=== PATIENT | female | born 1995 | race Hispanic/Latino ===

== ENCOUNTER 2017-06-21 09:53 | Emergency (ER) | payer SELFPAY ==
[2017-06-21 09:56] VITALS: BP 122/67; PULSE 77; RESP 18; TEMP 98.2; O2SAT 99
--- NOTE | 2017-06-21 10:28 | ED PDOC ---
HPI: General Adult Time Seen by Provider: 06/21/17 10:03 Chief Complaint (Nursing): Eye Problem History Per: Patient Additional Complaint(s): Pt. states for the past 2 weeks she's had R eye redness which has been improving slightly but then this morning she woke up with L eye redness and discharge prompting ED visit. She has been using Visine eye drops without relief. Denies pain, visual changes, trauma, contact lens use. Past Medical History Reviewed: Historical Data, Nursing Documentation, Vital Signs Vital Signs: Last Vital Signs Temp 98.2 F 06/21/17 09:56 Pulse 77 06/21/17 09:56 Resp 18 06/21/17 09:56 BP 122/67 06/21/17 09:56 Pulse Ox 99 06/21/17 09:56 - Family History Family History: States: No Known Family Hx - Home Medications Home Medications: Ambulatory Orders Medication Instructions Recorded Erythromycin 0.5% [Erythromycin] 1 applic BOTHEYES Q6 #1 tube 06/21/17 - Allergies Allergies/Adverse Reactions: Allergies Allergy/AdvReac Type Severity Reaction Status Date / Time FRUITS Allergy RASH Uncoded 06/21/17 10:05 NUTS Allergy RASH Uncoded 06/21/17 10:05 Review of Systems ROS Statement: Except As Marked, All Systems Reviewed And Found Negative Eyes: Positive for: Conjunctivae Inflammation, Redness Physical Exam - Physical Exam Appears: Positive for: Well, Non-toxic, No Acute Distress Skin: Positive for: Normal Color, Warm. Negative for: Rash Eye Exam: Positive for: EOMI (without pain), PERRL, Conjunctival injection (b/l (L>R)), Other (yellow discharge noted from L eye; minimal localized erythema noted to b/l upper eyelids without swelling or vesicles or pustules). Negative for: Nystagmus, Periorbital swelling, Periorbital tenderness - ECG O2 Sat by Pulse Oximetry: 99 Disposition - Clinical Impression Clinical Impression: Conjunctivitis - Patient ED Disposition Is Patient to be Admitted: No - Disposition Referrals: Paul Ivan [Outside] Disposition: Routine/Home Disposition Time: 10:15 Condition: STABLE Prescriptions: Erythromycin 0.5% [Erythromycin] 1 applic BOTHEYES Q6 #1 tube Instructions: Conjunctivitis (ED) Forms: Paul Malik (Serbian), [facility] ED School/Work Excuse
== END 2017-06-21 11:42 | disposition home or self-care (01) ==
LOC: H.ER 09:53
DX: H10.9 Unspecified conjunctivitis (principal)